=== PATIENT | female | born 1990 | race Caucasian/White ===

== ENCOUNTER → 2017-07-16 | Outpatient (CLI) | payer BC ==
[2017-07-16 17:29] LABS: BASO % 0.4 %; BASO ABS # 0.04 K/uL (0-0.2); EOS % 2.8 %; HEMATOCRIT 37.4 % (37-47); HEMOGLOBIN 12.6 g/dL (12.0-16.0); IG# 0.01 K/uL (0.00-0.02); LYMPH % 22.3 %; LYMPH ABS # 2.41 K/uL (1.2-3.4); MEAN CELL VOLUME 88.4 fL (80-100); MEAN CORPUSCULAR HEMOGLOBIN 29.8 pg (25-34); MEAN CORPUSCULAR HGB CONC 33.7 g/dl (32-36); MEAN PLATELET VOLUME 10.4 fL (7.4-10.4); MONO % 8.2 %; MONO ABS # 0.89 K/uL (0.11-0.59); NEUT % 66.2 %; NEUT ABS # 7.16 K/uL (1.4-6.5); PLATELET COUNT 224 K/uL (130-400); RED CELL DISTRIBUTION WIDTH CV 13.4 % (11.5-14.5); RED CELL DISTRIBUTION WIDTH SD 43.1 fL (36.4-46.3); WHITE BLOOD COUNT 10.81 K/uL (4.8-10.8)
== END | disposition home or self-care (01) ==
LOC: C.LAB1850 17:06
PROVIDERS: ATTEND Obstetrics & Gynecology
DX: Z34.81 Encounter for supervision of other normal pregnancy, first trimester (principal)

== ENCOUNTER → 2017-07-16 | Outpatient (CLI) | payer BC | END | disposition home or self-care (01) | LOC: C.LABSPEC 17:42 | PROVIDERS: ATTEND Obstetrics & Gynecology | DX: Z34.81 Encounter for supervision of other normal pregnancy, first trimester (principal) ==

== ENCOUNTER → 2017-08-30 | Outpatient (CLI) | payer BC | END | disposition home or self-care (01) | LOC: C.LAB1850 11:23 | PROVIDERS: ATTEND Obstetrics & Gynecology | DX: Z34.82 Encounter for supervision of other normal pregnancy, second trimester (principal) ==

== ENCOUNTER → 2018-01-20 | Outpatient (CLI) | payer BC | END | disposition home or self-care (01) | LOC: C.LABSPEC 17:42 | PROVIDERS: ATTEND Obstetrics & Gynecology | DX: Z34.83 Encounter for supervision of other normal pregnancy, third trimester (principal) ==

== ENCOUNTER 2018-09-01 08:13 | Inpatient (IN) ==
--- NOTE | 2018-08-29 14:04 | Anesthesiology Consultation ---
Date of Service August 29, 2018 Assessment & Plan (1) Encounter for pre-operative examination: Chart Review Chart Review: Acceptable Risk for Surgery and Patient NOT seen in Pre Admission Testing Consults Requested none History Surgery Operation Date: 09/15/18 08:15 Proposed Procedures p Laparoscopic Cholecystectomy with Cholangiogram - Dangelo Burkett MD Height/Weight Height: 5 ft 6.5 in Weight: 72.575 kg Allergies Allergy/AdvReac Type Severity Reaction Status Date / Time coconut Allergy Hives Verified 08/29/18 09:31 Medications Home Medications Medication Instructions Recorded Confirmed Last Taken albuterol sulfate 1 puff INHALATION Q6H PRN 05/18/18 08/29/18 Unknown multivitamin 1 tab PO QAM 08/29/18 08/29/18 Unknown Past Medical History Medical History Migraine Past Family History Family History Father Diabetes Sister Endometritis Mother Endometritis Hypertension Past Surgical History Surgical History Cyst of right Bartholin's gland removed History of adenoidectomy History of bilateral tubal [place] [facility] [place] of tonsillectomy History of wisdom tooth extraction Social History Smoking Status: Former smoker tobacco type: cigarettes Smoking cigarettes per day: QUIT SEVERAL YEARS AGO Do You Dip or Chew Tobacco: No Hx Alcohol Use: No Alcohol Intake Frequency Comment: 0 Hx Substance Use: No substance use type: does not use
--- NOTE | 2018-09-01 07:53 | Anesthesiology Consultation ---
Date of Service September 01, 2018 Assessment & Plan Chart Review Chart Review: Acceptable Risk for Surgery and Patient NOT seen in Pre Admission Testing Consults Requested none Proposed Anesthesia Anesthesia Type: General History Surgery Operation Date: 09/01/18 09:55 Proposed Procedures p Laparoscopic Cholecystectomy with Cholangiogram - Dangelo Burkett MD Operation Date: 09/15/18 08:15 Proposed Procedures p Laparoscopic Cholecystectomy with Cholangiogram - Dangelo Burkett MD Height/Weight Height: 1.69 m Weight: 72.575 kg Allergies Allergy/AdvReac Type Severity Reaction Status Date / Time coconut Allergy Hives Verified 08/29/18 09:31 Medications Home Medications Medication Instructions Recorded Confirmed Last Taken albuterol sulfate 1 puff INHALATION Q6H PRN 05/18/18 08/29/18 Unknown multivitamin 1 tab PO QAM 08/29/18 08/29/18 Unknown Past Medical History Medical History Migraine Past Family History Family History Father Diabetes Sister Endometritis Mother Endometritis Hypertension Past Surgical History Surgical History Cyst of right Bartholin's gland removed History of adenoidectomy History of bilateral tubal ligation MAY 2018, [facility] [place] Mac 3 gr I view #7 ETT History of tonsillectomy History of wisdom tooth extraction Past Anesthesia History No Hx of Anesthesia Complications and No Family Hx of Anesthesia Complications History of PONV No Motion Sickness Screening History of Motion Sickness: No Social History Smoking Status: Former smoker tobacco type: cigarettes Smoking cigarettes per day: QUIT SEVERAL YEARS AGO Do You Dip or Chew Tobacco: No Hx Alcohol Use: No Alcohol Intake Frequency Comment: 0 Hx Substance Use: No substance use type: does not use Exercise / Class Metabolic Activity II 4-5 Yardwork/Stairs/Walk up hill Testing Laboratory Results Laboratory Tests 08/16/18 16:11 Hgb 12.2 Hct 38.3
[~2018-09-01 08:13] MED LIST: LR 15ML/HR IV SCH
[2018-09-01] MEDS ORDERED: NEOSTIGMINE METHYLSULFATE 5 MG/5 ML SYR ONE (08:42)
[2018-09-01] MEDS ORDERED: ONDANSETRON INJ 2 MG/ML 2 ML VIAL ONE (08:42)
[2018-09-01] MEDS ORDERED: PROPOFOL IV EMULSION 10 MG/ML 20 ML VIAL IV ONE ×2 (08:42→10:06)
[2018-09-01] MEDS ORDERED: ROCURONIUM BROMIDE 10 MG/ML 5 ML VIAL ONE (08:42)
[2018-09-01] MEDS ORDERED: DEXAMETHASONE SOD INJ 4 MG/ML VIAL ONE (08:42)
[2018-09-01] MEDS ORDERED: GLYCOPYRROLATE 0.2 MG/ML VIAL ONE (08:42)
[2018-09-01] MEDS ORDERED: MIDAZOLAM HCL 1 MG/ML 2ML VIAL ONE (08:42)
[2018-09-01] MEDS ORDERED: fentaNYL citrate 100 MCG/2 ML VIAL ONE ×2 (08:42→10:13)
[2018-09-01] MEDS ORDERED: LIDOCAINE HCL 2% 2 ML VIAL/AMP(20MG/ML) INFIL ONE (08:42)
[2018-09-01] MEDS ORDERED: ePHEDrine sulfate 50 MG/ML AMP IV PRN (09:03)
[2018-09-01] MEDS ORDERED: MEPERIDINE HCL 25 MG/ML CARP IV PRN (09:03)
[2018-09-01] MEDS ORDERED: LABETALOL HCL IV 5 MG/ML 20ML IV PRN (09:03)
[2018-09-01] MEDS ORDERED: PHENYLEPHRINE 100MCG/ML 5ML SYR IV PRN (09:03)
[2018-09-01] MEDS ORDERED: ONDANSETRON INJ 2 MG/ML 2 ML VIAL IV PRN ×2 (09:03→12:24)
[2018-09-01] MEDS ORDERED: HYDROmorphone INJ 1 MG/ML SYRINGE IV PRN (09:03)
[2018-09-01] MEDS ORDERED: ATROPINE SULFATE 0.1 MG/ML 10ML SYR IV PRN (09:03)
--- NOTE | 2018-09-01 09:13 | History & Physical Bridge Note ---
Date of Service September 01, 2018 History & Physical Bridge Note I have examined the patient, reviewed the History & Physical and in the interval since the performance of the History & Physical I have noted the following changes of clinical significance: no changes noted all questions answered had acute attack 24 hrs + ago called office yesterday to move up surgery no nausea, no chiolls abd minimal ruq guarding SO at bedside
--- NOTE | 2018-09-01 09:16 | Anesthesiology Consultation ---
Date of Service September 01, 2018 Assessment & Plan Chart Review Chart Review: Acceptable Risk for Surgery and Patient NOT seen in Pre Admission Testing Consults Requested none ASA ASA2 Proposed Anesthesia Anesthesia Type: General Risk / Benefits Reviewed With: PT / POA / Parent / Guardian, Accepts Plan and Informed Consent Obtained NPO Date Last Intake of Fluids: 08/31/18 Time Last Intake of Fluids: 22:00 Date Last Intake of Solids: 08/31/18 Time Last Intake of Solids: 22:00 History Surgery Operation Date: 09/01/18 09:55 Proposed Procedures p Laparoscopic Cholecystectomy with Cholangiogram Devante Burkett MD Operation Date: 09/15/18 08:15 Proposed Procedures p Laparoscopic Cholecystectomy with Cholangiogram Devante Burkett MD Height/Weight Height: 5 ft 7 in Weight: 73.4 kg Allergies Allergy/AdvReac Type Severity Reaction Status Date / Time coconut Allergy Mild Hives Verified 09/01/18 08:38 Medications Home Medications Medication Instructions Recorded Confirmed Last Taken albuterol sulfate 1 puff INHALATION Q6H PRN 05/18/18 09/01/18 Unknown multivitamin 1 tab PO QAM 08/29/18 09/01/18 08/31/18 07:00 Active Medications Generic Name Dose Route Start Last Admin Trade Name Freq PRN Reason Stop Dose Admin Lactated Ringer's 1,000 mls @ 15 mls/hr 09/01/18 06:00 09/01/18 08:42 Lr IV 09/02/18 05:59 15 mls/hr .Q24H THUY Administration Past Medical History Medical History Cholecystitis Migraine Past Family History Family History Father Diabetes Sister Endometritis Mother Endometritis Hypertension Past Surgical History Surgical History History of bilateral tubal ligation MAY 2018, [facility] [place] [place] 3 gr I view #7 ETT Cyst of right Bartholin's gland removed History of adenoidectomy History of tonsillectomy History of wisdom tooth extraction Past Anesthesia History No Hx of Anesthesia Complications and No Family Hx of Anesthesia Complications History of PONV No Motion Sickness Screening History of Motion Sickness: No Social History Smoking Status: Former smoker tobacco type: cigarettes Smoking cigarettes per day: QUIT SEVERAL YEARS AGO Do You Dip or Chew Tobacco: No Hx Alcohol Use: No Alcohol Intake Frequency Comment: 0 Hx Substance Use: No substance use type: does not use Exercise / Class Metabolic Activity II 4-5 Yardwork/Stairs/Walk up hill Review of Systems no chest pain or sob Physical Exam Vital Signs Last Vital Signs Temp 36.4 C L 09/01/18 08:40 Pulse 74 09/01/18 08:40 Resp 16 09/01/18 08:40 BP 107/70 09/01/18 08:40 Pulse Ox 100 09/01/18 08:40 ENMT Mouth: no TMJ abnormality Thyromental Distance: > or= 3.5 Finger Breadths Mallampati Class: II Neck normal visual inspection Respiratory normal respiratory effort Auscultation: lungs clear to auscultation bilaterally Cardiovascular Rate/Rhythm: regular rate and regular rhythm Musculoskeletal Spine: normal cervical ROM Neurologic moves all extremities Psychiatric Orientation: alert and oriented x 3
[2018-09-01] MEDS ORDERED: LIDOCAINE/EPINEPHRINE 1% 20 ML VIAL ONE (09:36)
[2018-09-01] MEDS ORDERED: CONRAY 60% 50 ML VIAL ONE (09:36)
[2018-09-01] MEDS ORDERED: GLUCAGON FOR INJ 1 MG VIAL ONE (10:20)
[2018-09-01] MEDS ORDERED: cefOXitin 1,000 MG/50 ML BAG IV STA (10:31)
[2018-09-01] MEDS ORDERED: SUGAMMADEX SODIUM 200 MG/2 ML VIAL IV ONE (10:41)
--- NOTE | 2018-09-01 10:43 | Post Operative Brief Note ---
Immediate Post Op Note v1 Date of Surgery September 01, 2018 Pre & Post Diagnosis Operation Date: 09/01/18 09:55 Pre-Op Diagnosis: Chronic Cholecystitis and Acute Cholecystitis Post-Op Diagnosis: Chronic Cholecystitis and Acute Cholecystitis Common Bile Duct Stone Operation Date: 09/15/18 08:15 <No data on this case meets the specified criteria> Procedure Operation Date: 09/01/18 09:55 Actual Procedures p Laparoscopic Cholecystectomy with Cholangiogram - Dangelo Burkett MD Operation Date: 09/15/18 08:15 <No data on this case meets the specified criteria> Surgeon Dangelo Burkett MD Peg Driver ghassan alvarado Estimated Blood Loss 5 Findings Consistent with Post-Op Diagnosis Drains Abdirahman Drain (19fr)
--- NOTE | 2018-09-01 11:04 | Operative Report ---
Post Operative Report Pre & Post Diagnosis Operation Date: 09/01/18 09:55 Pre-Op Diagnosis: Chronic Cholecystitis and Acute Cholecystitis Post-Op Diagnosis: Chronic Cholecystitis and Acute Cholecystitis Common Bile Duct Stone Operation Date: 09/15/18 08:15 <No data on this case meets the specified criteria> Procedure Operation Date: 09/01/18 09:55 Actual Procedures p Laparoscopic Cholecystectomy with Cholangiogram - Daneglo Burkett MD Operation Date: 09/15/18 08:15 <No data on this case meets the specified criteria> Patient was brought into the operating theater under general anesthesia supine position abdomen prepped Betadine solution properly draped systemic antibiotics given timeout was had small incision was made supraumbilically sufficient enough for a Veress needle followed by CO2 followed by 5 mm trocar point of entry expected no intra-identified direct visualization 5 mm epigastric 2 5 mm subc ostal ports were placed with preemptive local analgesic gallbladder was identified the wall was edematous therefore we aspirated the gallbladder which was thick bilious sufficient enough that we able to gravity and elevated dissected out towards the triangle KAMI which that area was so some edema we identified a very small cystic duct which we clamped proximally small opening cystic duct was made #4 urethral catheter transverse and abdominal wall and a 14 Angiocath was positioned in the cystic duct serial x-rays were taken there was no contrast going into the duodenum the common bile duct and biliary proximal area was dilated one view I could see what appeared to be filling defects in the distal common bile duct I elected to give the patient 1 mg of glucagon flushed the area again and reimaged still we were unable to get any contrast into the duodenum but I suspect that the patient will need an ERCP postoperatively. At this point the Cholangiocath was removed cystic duct was doubly secured clips and divided cystic artery identified clipped and divided gallbladder was removed in the antegrade fashion leaving as much as possible the posterior peritoneum gallbladder placed in an Endopouch and taken out intact through the epigastric port on opening the gallbladder the patient had a typical cholesterol stones. Due to the suspicion that the patient would need an ERCP at this point I elected to place a Abdirahman drain subhepatically 19 bringing out through the epigastric port taken lots of the lateral port prior to doing that I placed the camera in the right upper quadrant lateral port to visualize the umbilical opening there were no adhesions of the area individual trocar was taken out under direct visualization and last the umbilical trocar wounds were cold closed with 4-0 Monocryl in a Abdirahman drain was attached to the skin edge with 2-0 silk interesting the patient had a workup that approximately a month ago at [place] silent liver enzymes were all normal she had no clinical symptoms of common bile duct stone no enzymes were obtained since she came in moved up her surgery we will obtain liver function tests in the recovery room along with her lipase I discussed the case with GI Dr. Martin Santiago for possibly doing an ERCP he recommended maybe wait till tomorrow since the patient was under general anesthesia may not be able to give consent at this time. The case was discussed with her also. Addendum blood loss 5 cc Celsa ROBLES present throughout the procedure and helped with retraction camera work and wound closure thank you Surgeon Dangelo Burkett MD Associate Chemist ghassan robles Estimated Blood Loss 5 Findings Consistent with Post-Op Diagnosis Specimens gallbladder and stones Description of Procedure merda I attest to the content of the Intraoperative Record and any orders documented therein. Any exceptions are noted below.
[2018-09-01] MEDS: fentaNYL citrate 100 MCG/2 ML VIAL IV PRN ×4 (11:18→11:34)
--- NOTE | 2018-09-01 11:39 | Fluoroscopy Report ---
INTRAOPERATIVE CHOLANGIOGRAM HISTORY: Post cholecystectomy. FLUOROSCOPY TIME: 5 seconds. 4 fluoroscopic spot images FINDINGS: Fluoroscopy was provided for an intraoperative cholangiogram status post cholecystectomy. C ontrast was injected through the cystic duct remnant. The common bile duct is normal in course and ca liber. There is a small round filling defect within the distal common bile duct. This is not clearly identified on the final image. However, does not extend into the small bowel. There is no intrahe patic bile duct dilatation. IMPRESSION: Fluoroscopy provided for an intraoperative cholangiogram status post cholecystectomy. The re is a small round filling defect within the distal common bile duct. This is not clearly identified on the final image. However, contrast does not extend into the small bowel. Therefore, this could re present a gas bubble or possible stone at the ampulla. Electronically signed by: Ankur Fairbanks M.D. 09/01/2018 11:38 AM
--- NOTE | 2018-09-01 11:49 | Anesthesiology Progress Note ---
Date of Service September 01, 2018 Anesthesia Post Procedure Vital Signs Vital Signs: Temp Pulse Pulse Resp BP Pulse Ox 09/01/18 11:40 61 21 135/88 100 09/01/18 11:30 56 L 19 140/94 99 09/01/18 11:20 51 L 21 131/91 100 09/01/18 11:10 51 L 18 133/85 100 09/01/18 11:00 36 C L 73 20 134/96 100 09/01/18 08:40 36.4 C L 74 16 107/70 100 Pain Intensity Abdomen: Pain Intensity: 3 Notes Mental Status: alert / awake / arousable Patient Amnestic to Procedure: Yes Nausea / Vomiting: adequately controlled Pain: adequately controlled Airway Patency, RR, SpO2: stable & adequate BP & HR: stable & adequate Hydration State: stable & adequate Anesthetic Complications: no major complications apparent and Pt Satisfied with anesthetic care
[2018-09-01 12:23] LABS: Albumin Level 3.6 gm/dl (3.4-5.0); Bilirubin Direct 2.8 mg/dl (0-0.2); Bilirubin,Total 3.4 mg/dl (0.2-1); Total Protein 7.2 gm/dl (6.4-8.2)
[2018-09-01] MEDS ORDERED: ALBUTEROL HFA 8 GM INHALER INH PRN (12:24)
[2018-09-01] MEDS: MoRPHine SULFATE 4 MG/ML 1 ML CARP\\VIAL IV PRN ×3 (12:38→19:45)
[2018-09-01] MEDS: LACTATED RINGER'S 1,000 ML IV SCH (12:38)
--- NOTE | 2018-09-01 12:39 | Gastrointestinal Consultation ---
Date of Consultation September 01, 2018 Assessment & Plan (1) Retained gallstones following laparoscopic cholecystectomy: Pt is a 27 y/o female who just underwent lap cholecystectomy today for worsening RUQ abd pain, found to have filling defect on her intra op cholangiogram suspicious for CBD stone. - Check CBC, CMP, PT/INR, Lipase - NPO after midnight for ERCP in OR tomorrow by Dr. Santiago. She is currently in PACU recovering from her lap miguelina. I was able to get in touch with her Marshall and discussed w him indication of ERCP, technical details of the procedure and risks vs benefits. Will follow up with pt once she's more awake. Supervising Physician Co-Signing Physician Notes I saw and evaluated the patient. She presented with a history of abdominal discomfort and underwent an intraoperative cholangiogram during her cholecystectomy today. It appears that she has a number of filling defects suggestive of gallstones. Labs certainly after her cholecystectomy to show elevation of the liver enzymes in addition to her bilirubin and lipase. Physical examination No obvious distress Mild scleral icterus noted Impression: Patient with what appears to be numerous gallstones within her common bile duct and perhaps pancreatitis given her labs. We would suggest aggressive IV hydration overnight and ERCP gallstone extraction. Recommendation IV hydration today please ERCP tomorrow History of Present Illness Reason for Consultation: ERCP request for choledocholithiasis Requesting Physician: Dr. Dangelo Burkett Attending Physician: Dr. Cassia Santiago History of Present Illness Pt is a 27 y/o female who had been c/o worsening RUQ abd pain symptoms, had her lap cholecystectomy moved up to today by Dr. Burkett. It was noted on her intraop cholangiogram that she has a filling defect in her bile duct suspicious for CBD stone. GI contacted for ERCP request to remove CBD stone. She is currently in PACU after her lap miguelina, c/o abd pain but remained drowsy. Doesn't appear to be in distress. HRR, CTA lungs. She is going to be transferred to surgical floor. Allergies Allergy/AdvReac Type Severity Reaction Status Date / Time coconut Allergy Mild Hives Verified 09/01/18 08:38 Home Medications Home Medications Medication Instructions Recorded Confirmed Type albuterol sulfate 1 puff INHALATION Q6H PRN 05/18/18 09/01/18 History multivitamin 1 tab PO QAM 08/29/18 09/01/18 History oxycodone-acetaminophen [Percocet] 1 - 2 tab PO Q4H PRN #15 tab 09/01/18 Rx Patient History Medical History Cholecystitis Migraine Surgical History History of bilateral tubal ligation MAY 2018, [place] Mac 3 gr I view #7 ETT Cyst of right Bartholin's gland removed History of adenoidectomy History of tonsillectomy History of wisdom tooth extraction Family History Father Diabetes Sister Endometritis Mother Endometritis Hypertension Social History Preferred Language: Honduran Communication Ability: Effective Bobbin Winder Required: No Beliefs That Will Affect Care: None marital status: Current Living Situation: Spouse Other Information That Helps Us Care for You: No Feels Safe at Home: Yes Safety Concerns: Feels Safe At This Time Smoking Status: Former smoker Hx Alcohol Use: No Hx Substance Use: No Review of Systems See HPI above. Physical Exam Vital Signs (Past 24 Hours): Last Vital Signs Temp 36.8 C 09/01/18 12:00 Pulse 53 L 09/01/18 12:00 Resp 12 09/01/18 12:00 BP 136/93 09/01/18 12:00 Pulse Ox 100 09/01/18 12:00 Constitutional: WD/WN, vitals as above well groomed, cooperative and comfortable Eyes: PERRL, conjunctivae normal, anicteric sclerae ENMT: external ear and nose normal, oropharynx normal Respiratory: normal respiratory effort, lungs clear to auscultation Cardiovascular: RRR, no murmur, no edema Gastrointestinal (Abdomen): Percussion/Palpation: + abdomen tender and abdomen soft Skin: no rashes, warm and dry no jaundice Psychiatric: drowsy (post op) Results & Data Laboratory Results Laboratory Results - last 72 hr 09/01/18 11:47 Total Bilirubin 3.4 H Direct Bilirubin 2.8 H AST 164 H ALT 245 H Alkaline Phosphatase 192 H Total Protein 7.2 Albumin 3.6 Lipase 2269 H
[2018-09-01 13:30] LABS: Basophils # (auto) 0.01 K/uL (0-0.2); Basophils % (auto) 0.1 %; Eosinophils # (auto) 0.03 K/uL (0-0.5); Eosinophils % (auto) 0.3 %; Hematocrit (blood only) 39.1 % (37-47); Hemoglobin 12.6 g/dL (12.0-16.0); Immature Granulocytes # (auto) 0.02 K/uL (0.00-0.02); Immature Granulocytes % (auto) 0.2 %; Lymphocytes # (auto) 0.84 K/uL (1.2-3.4); Mean Corpuscular Hgb Conc 32.2 g/dL (32-36); Mean Corpuscular Volume 83.4 fL (80-100); Mean Platelet Volume 11.8 fL (7.4-10.4); Monocytes % (auto) 2.1 %; Neutrophils # (auto) 8.28 K/uL (1.4-6.5); Neutrophils % (auto) 88.3 %; Platelet Count 204 K/uL (130-400); RDW Coefficient of Variation 15.4 % (11.5-14.5); RDW Standard Deviation 47.1 fL (36.4-46.3); Red Blood Count 4.69 M/uL (4.2-5.4); White Blood Count 9.38 K/uL (4.8-10.8)
[2018-09-01 13:41] LABS: Prothrombin Time 10.5 Seconds (9.0-12.0)
[2018-09-01 13:48] LABS: Albumin Level 3.5 gm/dl (3.4-5.0); BUN Creatinine Ratio 7.3 (10-20); Calcium 8.9 mg/dl (8.5-10.1); Creatinine Clr Calc Pharmacy 82.4 ml/min; Est GFR (African American) 90.3; Potassium 3.7 mmol/L (3.5-5.1)
[2018-09-01 13:51] LABS: Bilirubin,Total 3.2 mg/dl (0.2-1); Globulin 3.4 gm/dl (2.5-4.0); Total Protein 6.9 gm/dl (6.4-8.2)
[2018-09-01] MEDS ORDERED: INFLUENZA ADMINISTRATION CHARGE ONE (14:45)
[2018-09-01] MEDS ORDERED: INFLUENZA VIRUS QUAD VACCINE 0.5 ML SYR IM ONE (14:45)
[2018-09-02] MEDS: LACTATED RINGER'S 1,000 ML IV SCH ×2 (00:12→09:37)
[2018-09-02] MEDS: MoRPHine SULFATE 4 MG/ML 1 ML CARP\\VIAL IV PRN ×3 (00:15→10:42)
[2018-09-02] MEDS ORDERED: INDOMETHACIN 50 MG SUPP PR ONE ×2 (08:00→12:06)
--- NOTE | 2018-09-02 08:16 | Surgery Progress Note ---
Date of Service September 02, 2018 Assessment & Plan (1) Retained gallstones following laparoscopic cholecystectomy: for ERCP today Subjective some pain at epigastric incision, RUQ pain similar to preop Physical Exam Vital Signs (Past 24 Hours): Last Vital Signs Temp 36.9 C 09/02/18 03:52 Pulse 65 09/02/18 03:52 Resp 14 09/02/18 03:52 BP 110/69 09/02/18 03:52 Pulse Ox 99 09/02/18 03:52 Gastrointestinal (Abdomen): Inspection/Auscultation: + abdominal surgical drain present (70 cc serosang) Percussion/Palpation: abdomen soft
--- NOTE | 2018-09-02 11:03 | Gastroenterology Progress Note ---
Date of Service September 02, 2018 Assessment & Plan (1) Retained gallstones following laparoscopic cholecystectomy: Pt is a 27 y/o female who just underwent lap cholecystectomy yesterday (09/01) for worsening RUQ abd pain, with intra op cholangiogram suspicious for CBD stone. Plan for ERCP in the OR by Dr. Santiago today. The procedure was explained in detail including possible complications: bleeding, pancreatitis. Keep NPO. Further recommendations to follow ERCP. Supervising Physician Co-Signing Physician Notes I saw and evaluated the patient. We are planning to proceed with ERCP today for treatment of choledocholithiasis. The patient and I have discussed the risks of the procedure to include bleeding, infection, perforation and pain. Given her elevated lipase from yesterday I would suggest a repeat today. Subjective Constitutional: no fever, no sweats, no body aches and no weakness Eyes: no dry eyes, no eye pain and no itchy eyes Ear, Nose, Mouth, Throat: no ear pain and no pain with swallowing Respiratory: no cough, no dyspnea and no hemoptysis Cardiovascular: no chest pain, no palpitations and no edema Gastrointestinal: + abdominal pain (surgical); no early satiety, no nausea, no vomiting and no hematemesis Genitourinary (Female): no dysuria Musculoskeletal: no back pain Integumentary: no rash and no lesions Neurologic: no gait abnormality, no falls and no localized weakness Psychiatric: no behavioral changes and no depression Endocrine: no fatigue, no polydipsia, no polyphagia and no polyuria Physical Exam Vital Signs (Past 24 Hours): Last Vital Signs Temp 36.8 C 09/02/18 07:25 Pulse 65 09/02/18 07:25 Resp 16 09/02/18 07:25 BP 100/66 09/02/18 07:25 Pulse Ox 98 09/02/18 07:25 Constitutional: WD/WN, vitals as above Eyes: PERRL, conjunctivae normal, anicteric sclerae ENMT: external ear and nose normal, oropharynx normal Neck: trachea midline, no thyromegaly Respiratory: normal respiratory effort; no respiratory distress, no retractions, does not use accessory muscles and no cough minimal crackles in the right base; no wheezing Cardiovascular: RRR, no murmur, no edema Gastrointestinal (Abdomen): tenderness in the surgical areas, dressings dry & intact, BS presents all 4 quadrants, minimal soft distention Musculoskeletal: no cyanosis or clubbing, extremities motor strength 5/5 Skin: no rashes, warm and dry no jaundice Neurologic: PERRL, EOMI, accommodation nl, no face palsy, no dysarthria Psychiatric: A+Ox3, euthymic affect Lymphatic: no cervical or axillary lymphadenopathy
[2018-09-02] MEDS ORDERED: PROPOFOL IV EMULSION 10 MG/ML 20 ML VIAL IV ONE (11:27)
[2018-09-02] MEDS ORDERED: LIDOCAINE HCL 2% 2 ML VIAL/AMP(20MG/ML) INFIL ONE (11:27)
[2018-09-02] MEDS ORDERED: MIDAZOLAM HCL 1 MG/ML 2ML VIAL ONE (11:27)
[2018-09-02] MEDS ORDERED: fentaNYL citrate 100 MCG/2 ML VIAL ONE (11:28)
--- NOTE | 2018-09-02 12:24 | Anesthesiology Consultation ---
Date of Service September 02, 2018 Assessment & Plan Chart Review Chart Review: Acceptable Risk for Surgery and Patient NOT seen in Pre Admission Testing Consults Requested none ASA ASA2 Proposed Anesthesia Anesthesia Type: General Risk / Benefits Reviewed With: PT / POA / Parent / Guardian, Accepts Plan and Informed Consent Obtained NPO Date Last Intake of Fluids: 09/01/18 Time Last Intake of Fluids: 23:59 Date Last Intake of Solids: 09/01/18 Time Last Intake of Solids: 23:59 History Surgery Operation Date: 09/01/18 09:55 Proposed Procedures p Laparoscopic Cholecystectomy with Cholangiogram - Dangelo Burkett MD Operation Date: 09/02/18 12:00 Proposed Procedures p Endoscopic Retrograde Cholangiopancreatogram - Cassia Santiago Operation Date: 09/15/18 08:15 Proposed Procedures p Laparoscopic Cholecystectomy with Cholangiogram - Dangelo Burkett MD Height/Weight Height: 5 ft 7 in Weight: 73.4 kg Allergies Allergy/AdvReac Type Severity Reaction Status Date / Time coconut Allergy Mild Hives Verified 09/01/18 08:38 Medications Home Medications Medication Instructions Recorded Confirmed Last Taken albuterol sulfate 1 puff INHALATION Q6H PRN 05/18/18 09/01/18 Unknown multivitamin 1 tab PO QAM 08/29/18 09/01/18 08/31/18 07:00 oxycodone-acetaminophen [Percocet] 1 - 2 tab PO Q4H PRN #15 tab 09/01/18 Unknown Active Medications Generic Name Dose Route Start Last Admin Trade Name Freq PRN Reason Stop Dose Admin Lactated Ringer's 1,000 mls @ 100 mls/hr 09/01/18 12:24 09/02/18 09:37 Lr IV 10/01/18 12:23 100 mls/hr .Q10H THUY Administration Morphine Sulfate 4 mg 09/01/18 12:24 09/02/18 10:42 Morphine Sulfate IV 09/15/18 12:23 4 mg Q1H PRN Administration MODERATE Pain (Scale 4,5,6) Past Medical History Medical History Cholecystitis Migraine Past Family History Family History Father Diabetes Sister Endometritis Mother Endometritis Hypertension Past Surgical History Surgical History History of bilateral tubal ligation MAY 2018, [place] [facility] 3 gr I view #7 ETT Cyst of right Bartholin's gland removed History of adenoidectomy History of tonsillectomy History of wisdom tooth extraction Past Anesthesia History No Hx of Anesthesia Complications and No Family Hx of Anesthesia Complications History of PONV No Motion Sickness Screening History of Motion Sickness: No Social History Smoking Status: Former smoker tobacco type: cigarettes Smoking cigarettes per day: QUIT SEVERAL YEARS AGO Do You Dip or Chew Tobacco: No Hx Alcohol Use: No Alcohol Intake Frequency Comment: 0 Hx Substance Use: No substance use type: does not use Exercise / Class Metabolic Activity II 4-5 Yardwork/Stairs/Walk up hill Physical Exam Vital Signs Last Vital Signs Temp 36.8 C 09/02/18 11:29 Pulse 72 09/02/18 11:29 Resp 18 09/02/18 11:29 BP 105/65 09/02/18 11:29 Pulse Ox 100 09/02/18 11:29 Constitutional not obese ENMT Mouth: no dentition abnormality Thyromental Distance: > or= 3.5 Finger Breadths Mallampati Class: II Neck normal visual inspection and trachea midline; neck extension not limited Respiratory normal respiratory effort Auscultation: lungs clear to auscultation bilaterally Cardiovascular Rate/Rhythm: regular rate and regular rhythm Heart Sounds: no murmur Musculoskeletal Spine: normal cervical ROM Neurologic moves all extremities Motor/Sensory: no sensory deficit Psychiatric Orientation: alert and oriented x 3 Testing Laboratory Results 09/01/18 13:16 09/01/18 13:16 PT 10.5 Seconds (9.0-12.0) 09/01/18 13:16 INR 1.0 (0.9-1.1) 09/01/18 13:16
--- NOTE | 2018-09-02 12:30 | History & Physical Bridge Note ---
Date of Service September 02, 2018 History & Physical Bridge Note I have examined the patient, reviewed the History & Physical and in the interval since the performance of the History & Physical I have noted the following changes of clinical significance: no changes noted
[2018-09-02] MEDS ORDERED: ONDANSETRON INJ 2 MG/ML 2 ML VIAL ONE ×2 (13:05→16:22)
[2018-09-02] MEDS ORDERED: LABETALOL HCL IV 5 MG/ML 20ML IV PRN (13:16)
[2018-09-02] MEDS ORDERED: PROMETHAZINE HCL 12.5 MG in SODIUM CHLORIDE 0.9% 50 ML IV PRN (13:16)
[2018-09-02] MEDS ORDERED: NALOXONE HCL 0.4 MG/1 ML VIAL/CARP IV PRN (13:16)
[2018-09-02] MEDS ORDERED: FLUMAZENIL 0.1 MG/1 ML 10 ML VIAL IV PRN (13:16)
[2018-09-02] MEDS ORDERED: ONDANSETRON INJ 2 MG/ML 2 ML VIAL IV PRN ×2 (13:16→16:19)
[2018-09-02] MEDS ORDERED: fentaNYL citrate 100 MCG/2 ML VIAL IV PRN (13:16)
[2018-09-02] MEDS ORDERED: ePHEDrine sulfate 50 MG/ML AMP IV PRN (13:16)
[2018-09-02] MEDS ORDERED: ATROPINE SULFATE 0.1 MG/ML 10ML SYR IV PRN (13:16)
--- NOTE | 2018-09-02 13:19 | Post Operative Brief Note ---
Immediate Post Op Note v1 Date of Surgery September 02, 2018 Pre & Post Diagnosis Operation Date: 09/01/18 09:55 Pre-Op Diagnosis: Chronic Cholecystitis and Acute Cholecystitis Post-Op Diagnosis: Chronic Cholecystitis and Acute Cholecystitis Common Bile Duct Stone Operation Date: 09/02/18 12:00 Pre-Op Diagnosis: Chronic Cholecystitis Post-Op Diagnosis: Chronic Cholecystitis Operation Date: 09/15/18 08:15 <No data on this case meets the specified criteria> Procedure Operation Date: 09/01/18 09:55 Actual Procedures p Laparoscopic Cholecystectomy with Cholangiogram - Dangelo Burkett MD Operation Date: 09/02/18 12:00 Actual Procedures p Endoscopic Retrograde Cholangiopancreatogram(Not Applicable) - Cassia Santiago Operation Date: 09/15/18 08:15 <No data on this case meets the specified criteria> Surgeon Cassia Santiago Stone Mill Operator [email or web address] Estimated Blood Loss 0 Findings See Below (CBD stones) Drains Abdirahman Drain (19fr)
[2018-09-02] MEDS ORDERED: GLYCOPYRROLATE 0.2 MG/ML VIAL ONE (13:29)
[2018-09-02] MEDS ORDERED: NEOSTIGMINE METHYLSULFATE 5 MG/5 ML SYR ONE (13:29)
--- NOTE | 2018-09-02 13:37 | GI REPORT ---
Patient Name: Nataliia Sheridan Procedure Date: 09/02/2018 12:45 PM Date of : 1990 Admit Type: Inpatient Age: 27 Gender: Female Attending MD: Cassia Santiago DO Procedure: ERCP Providers: Cassia Santiago DO Referring MD: Dangelo Burkett Indications: Abdominal pain of suspected biliary origin, Filling defect on intraoperative cholangiogram, For therapy of bile duct stone(s) Medicines: General Anesthesia Complications: No immediate complications. Estimated blood loss: Minimal. Estimated Blood Loss: Estimated blood loss was minimal. Procedure: Pre-Anesthesia Assessment: - Prior to the procedure, a History and Physical was performed, and patient medications, allergies and sensitivities were reviewed. The patient's tolerance of previous anesthesia was reviewed. - The risks and benefits of the procedure and the sedation options and risks were discussed with the patient. All questions were answered and informed consent was obtained. - Patient identification and proposed procedure were verified prior to the procedure by the physician, the nurse and the petroleum blending plant operator. The procedure was verified in the procedure room. - Pre-procedure physical examination revealed no contraindications to sedation. - ASA Grade Assessment: II - A patient with mild systemic disease. - After reviewing the risks and benefits, the patient was deemed in satisfactory condition to undergo the procedure. - The anesthesia plan was to use general anesthesia. - Immediately prior to administration of medications, the patient was re-assessed for adequacy to receive sedatives. - The heart rate, respiratory rate, oxygen saturations, blood pressure, adequacy of pulmonary ventilation, and response to care were monitored throughout the procedure. - The physical status of the patient was re-assessed after the procedure. After obtaining informed consent, the scope was passed under direct vision. Throughout the procedure, the patient's blood pressure, pulse, and oxygen saturations were monitored continuously. The scope was introduced through the mouth, and advanced to the duodenum and used to inject contrast into the bile duct. The ERCP was accomplished without difficulty. The patient tolerated the procedure well. Findings: A advanced manufacturing associate film of the abdomen was obtained. Surgical clips, consistent with a previous cholecystectomy, were seen in the area of the right upper quadrant of the abdomen. The esophagus was successfully intubated under direct vision without detailed examination of the pharynx, larynx, and associated structures, and upper GI tract. The upper GI tract was grossly normal. The major papilla was normal. The bile duct was deeply cannulated with the short-nosed traction sphincterotome and guidewire. Contrast was injected. I personally interpreted the bile duct images. Contrast extended to the entire biliary tree. A cholecystectomy had been performed. The biliary orifice was stenotic. This appeared benign. The lower third of the main bile duct contained filling defect(s) thought to be a stone. Biliary sphincterotomy was made with a monofilament Fusion OMNI sphincterotome using ERBE electrocautery. There was no post-sphincterotomy bleeding. The biliary tree was swept with a 15 mm balloon starting at the bifurcation. Many stones were removed. No stones remained. Indomethacin 100 mg was given via suppository to decrease the risk of post-ERCP pancreatitis (PEP). The endoscope was withdrawn from the patient. Impression: - The major papilla appeared normal. - Biliary papillary stenosis, benign. - A filling defect consistent with a stone was seen on the cholangiogram. - The patient has had a cholecystectomy. - Choledocholithiasis was found. Complete removal was accomplished by biliary sphincterotomy and balloon extraction. - A biliary sphincterotomy was performed. - The biliary tree was swept. - Indomethacin given to decrease risk of post-ERCP pancreatitis. Recommendation: - Avoid aspirin and nonsteroidal anti-inflammatory medicines for 5 days. - Clear liquid diet today. -Labs ordered, if lipase still elevated would consider overnight observation with IV hydration. Cassia Santiago D.O. Cassia Santiago, 09/02/2018 1:37:49 PM This report has been signed electronically. Note Initiated On: 09/02/2018 12:45 PM Number of Addenda: 0 I attest to the content of the Intraoperative Record and orders documented therein, exceptions below {[id number]}
--- NOTE | 2018-09-02 13:55 | Fluoroscopy Report ---
INTRAOPERATIVE RADIOGRAPHS CLINICAL HISTORY: ERCP. Fluoroscopy time: 54 seconds. FINDINGS: 7 spot fluoroscopic views of the right upper quadrant from an ERCP procedure are presented. Correlation is made with abdominal ultrasound dated 08/19/2018. A percutaneous catheter projects over the right upper quadrant. There is cannulation the common bile duct which appears distended. There i s intrahepatic biliary ductal dilatation. Round filling defects within the common bile duct may repre sent gallstones versus gas bubbles. A balloon sweep of the common duct is performed. There is free pa ssage of contrast into the duodenum. IMPRESSION: Intraoperative ERCP images as above. See operative report for detailed findings. Electronically signed by: Cas Lerner M.D. 09/02/2018 1:54 PM
--- NOTE | 2018-09-02 13:56 | Anesthesiology Progress Note ---
Date of Service September 02, 2018 Anesthesia Post Procedure Vital Signs Vital Signs: Temp Pulse Pulse Resp BP BP Pulse Ox 09/02/18 13:50 63 15 119/74 100 09/02/18 13:40 61 20 108/73 100 09/02/18 13:30 60 19 112/67 100 09/02/18 13:21 36.4 C L 78 17 121/73 100 09/02/18 12:39 36.8 C 69 18 111/69 100 09/02/18 11:29 36.8 C 72 18 105/65 100 09/02/18 07:25 36.8 C 65 16 100/66 98 09/02/18 03:52 36.9 C 65 14 110/69 99 09/02/18 00:00 36.9 C 68 14 111/70 98 09/01/18 15:33 37 C 64 16 115/74 98 09/01/18 14:34 36.7 C 80 16 111/74 100 Pain Intensity Abdomen: Pain Intensity: 2 Notes Mental Status: alert / awake / arousable Patient Amnestic to Procedure: Yes Nausea / Vomiting: adequately controlled Pain: adequately controlled Airway Patency, RR, SpO2: stable & adequate BP & HR: stable & adequate Hydration State: stable & adequate Anesthetic Complications: no major complications apparent
[2018-09-02] MEDS ORDERED: MoRPHine SULFATE 4 MG/ML 1 ML CARP\\VIAL IV PRN (16:17)
[2018-09-02] MEDS ORDERED: OXYCODONE/ACETAMINOPHEN 5mg/325mg TAB PO PRN (16:19)
[2018-09-02 16:48] LABS: BUN Creatinine Ratio 7.4 (10-20); Calcium 8.6 mg/dl (8.5-10.1); Creatinine Clr Calc Pharmacy 107.6 ml/min; Est GFR (African American) 124.8; Est GFR (Non-African American) 107.7; Potassium 3.4 mmol/L (3.5-5.1)
[2018-09-02 16:52] LABS: Albumin Globulin Ratio 0.9 (0.9-2); Bilirubin,Total 1.1 mg/dl (0.2-1); Globulin 3.2 gm/dl (2.5-4.0); Total Protein 6.2 gm/dl (6.4-8.2)
[2018-09-03 08:31] LABS: Basophils # (auto) 0.03 K/uL (0-0.2); Basophils % (auto) 0.5 %; Eosinophils % (auto) 3.4 %; Hematocrit (blood only) 34.4 % (37-47); Hemoglobin 10.7 g/dL (12.0-16.0); Immature Granulocytes # (auto) 0.02 K/uL (0.00-0.02); Immature Granulocytes % (auto) 0.3 %; Lymphocytes # (auto) 1.24 K/uL (1.2-3.4); Lymphocytes % (auto) 20.8 %; Mean Corpuscular Hgb Conc 31.1 g/dL (32-36); Mean Corpuscular Volume 83.5 fL (80-100); Mean Platelet Volume 11.2 fL (7.4-10.4); Monocytes # (auto) 0.63 K/uL (0.11-0.59); Monocytes % (auto) 10.6 %; Neutrophils # (auto) 3.83 K/uL (1.4-6.5); Neutrophils % (auto) 64.4 %; Platelet Count 175 K/uL (130-400); RDW Coefficient of Variation 15.4 % (11.5-14.5); RDW Standard Deviation 47.3 fL (36.4-46.3); Red Blood Count 4.12 M/uL (4.2-5.4); White Blood Count 5.95 K/uL (4.8-10.8)
[2018-09-03 08:50] LABS: Albumin Level 3.1 gm/dl (3.4-5.0); BUN Creatinine Ratio 10.5 (10-20); Calcium 9.4 mg/dl (8.5-10.1); Creatinine Clr Calc Pharmacy 120.5 ml/min; Est GFR (African American) 137.7; Est GFR (Non-African American) 118.8; Potassium 3.9 mmol/L (3.5-5.1)
[2018-09-03 08:53] LABS: Bilirubin,Total 0.9 mg/dl (0.2-1); Globulin 3.1 gm/dl (2.5-4.0); Total Protein 6.2 gm/dl (6.4-8.2)
[2018-09-03] MEDS ORDERED: MULTIVITAMIN TAB PO SCH (09:00)
--- NOTE | 2018-09-03 09:08 | Gastroenterology Progress Note ---
Date of Service September 03, 2018 Assessment & Plan (1) Retained gallstones following laparoscopic cholecystectomy: Patient status post ERCP for retained gallstones after cholecystectomy. She appears to be doing well from this regard. From our standpoint I would suggest advancing her diet as tolerated today and perhaps even early discharge. The patient will follow with my office as needed. Please call with any questions or concerns per Subjective The patient underwent ERCP yesterday for gallstone extraction. This morning she notes that her pain is improved. She does have some discomfort around her surgical incisions in addition to the ROLF drain. Physical Exam Vital Signs (Past 24 Hours): Last Vital Signs Temp 36.9 C 09/03/18 07:27 Pulse 77 09/03/18 07:27 Resp 18 09/03/18 07:27 BP 106/67 09/03/18 07:27 Pulse Ox 98 09/03/18 07:27 Constitutional: WD/WN, vitals as above Eyes: PERRL, conjunctivae normal, anicteric sclerae Respiratory: normal respiratory effort, lungs clear to auscultation Cardiovascular: RRR, no murmur, no edema Gastrointestinal (Abdomen): Mild tenderness noted around the site of the incisions and ROLF drain. ROLF drain seems to have serous fluid. Results & Data Laboratory Results Laboratory Results - last 24 hr 09/02/18 09/03/18 09/03/18 16:09 08:18 08:18 WBC 5.95 RBC 4.12 L Hgb 10.7 L Hct 34.4 L MCV 83.5 MCH 26.0 MCHC 31.1 L RDW Std Deviation 47.3 H RDW Coeff of Mary 15.4 H Plt Count 175 MPV 11.2 H Immature Gran % (Auto) 0.3 Neut % (Auto) 64.4 Lymph % (Auto) 20.8 Daniels % (Auto) 10.6 Eos % (Auto) 3.4 Baso % (Auto) 0.5 Immature Gran # (Auto) 0.02 Neut # (Auto) 3.83 Lymph # (Auto) 1.24 Daniels # (Auto) 0.63 H Eos # (Auto) 0.20 Baso # (Auto) 0.03 Sodium 141 140 Potassium 3.4 L 3.9 Chloride 109 H 108 H Carbon Dioxide 26 25 Anion Gap 6.0 6.0 BUN 6 L 7 Creatinine 0.75 0.67 Est Cr Clr Drug Dosing 107.6 120.5 Est GFR ( Amer) 124.8 137.7 Est GFR (Non-Af Amer) 107.7 118.8 BUN/Creatinine Ratio 7.4 L 10.5 Glucose 102 H 77 Calcium 8.6 9.4 Total Bilirubin 1.1 H D 0.9 AST 83 H 55 H ALT 187 H 160 H Alkaline Phosphatase 173 H 162 H Total Protein 6.2 L 6.2 L Albumin 3.0 L 3.1 L Globulin 3.2 3.1 Albumin/Globulin Ratio 0.9 1.0 Lipase 236
--- NOTE | 2018-09-03 10:00 | Anesthesiology Progress Note ---
Date of Service September 03, 2018 Anesthesia Post Procedure Vital Signs Vital Signs: Temp Pulse Pulse Pulse Resp BP Pulse Ox 09/03/18 07:27 36.9 C 77 18 106/67 98 09/03/18 03:07 37.1 C 88 14 100/65 97 09/02/18 23:38 37.0 C 70 14 97/60 L 97 09/02/18 19:11 36.6 C 59 L 18 115/76 100 09/02/18 17:23 36.7 C 69 19 117/78 98 09/02/18 16:23 36.8 C 68 18 105/69 98 09/02/18 15:20 36.9 C 68 18 103/70 98 09/02/18 14:50 36.6 C 67 15 114/73 98 09/02/18 14:20 37.1 C 68 16 108/72 99 09/02/18 14:00 37.2 C 61 23 109/70 98 09/02/18 13:50 63 15 119/74 100 09/02/18 13:40 61 20 108/73 100 09/02/18 13:30 60 19 112/67 100 09/02/18 13:21 36.4 C L 78 17 121/73 100 09/02/18 12:39 36.8 C 69 18 111/69 100 09/02/18 11:29 36.8 C 72 18 105/65 100 Pain Intensity Abdomen: Pain Intensity: 3 Notes Mental Status: alert / awake / arousable and participated in evaluation Patient Amnestic to Procedure: Yes Nausea / Vomiting: adequately controlled Pain: adequately controlled Airway Patency, RR, SpO2: stable & adequate BP & HR: stable & adequate Hydration State: stable & adequate Anesthetic Complications: no major complications apparent and Pt Satisfied with anesthetic care
--- NOTE | 2018-09-03 10:47 | Progress Note ---
Date of Service September 03, 2018 Assessment & Plan (1) Retained gallstones following laparoscopic cholecystectomy: Pt is s/p lap miguelina followed by ERCP with spincterotomy and removal of stones. She is doing well post-operatively. LFTs trending downward. - Regular diet - Monitor drain output - Analagesia PRN - Dispo: d/c home if tolerates diet - d/c with drain; patient instructed that she should measure drain output and record amount and bring record with her to her follow up appointment - f/u in approximately [address] Burkett (2) Acute and chronic cholecystitis: Subjective Pt is doing well today. Pain is well controlled. Mild nausea has improved. Ambulating without difficulty. Drain output 170. ml in the past 24 hrs Physical Exam Vital Signs (Past 24 Hours): Last Vital Signs Temp 36.9 C 09/03/18 07:27 Pulse 77 09/03/18 07:27 Resp 18 09/03/18 07:27 BP 106/67 09/03/18 07:27 Pulse Ox 98 09/03/18 07:27 Constitutional: no acute distress Respiratory: normal respiratory effort Cardiovascular: Rate/Rhythm: regular rate Gastrointestinal (Abdomen): soft, nondistended, mild appropriate tenderness; incisions clean/dry, no erythema or drainage; drain with serosang output Results & Data Laboratory Results 09/03/18 09/03/18 09/02/18 Range/Units 08:18 08:18 16:09 WBC 5.95 (4.8-10.8) K/uL RBC 4.12 L (4.2-5.4) M/uL Hgb 10.7 L (12.0-16.0) g/dL Hct 34.4 L (37-47) % MCV 83.5 (80-100) fL MCH 26.0 (25-34) pg MCHC 31.1 L (32-36) g/dL RDW Std Deviation 47.3 H (36.4-46.3) fL RDW Coeff of Mary 15.4 H (11.5-14.5) % Plt Count 175 (130-400) K/uL MPV 11.2 H (7.4-10.4) fL Immature Gran % (Auto) 0.3 % Neut % (Auto) 64.4 % Lymph % (Auto) 20.8 % Haskell % (Auto) 10.6 % Eos % (Auto) 3.4 % Baso % (Auto) 0.5 % Immature Gran # (Auto) 0.02 (0.00-0.02) K/uL Neut # (Auto) 3.83 (1.4-6.5) K/uL Lymph # (Auto) 1.24 (1.2-3.4) K/uL Haskell # (Auto) 0.63 H (0.11-0.59) K/uL Eos # (Auto) 0.20 (0-0.5) K/uL Baso # (Auto) 0.03 (0-0.2) K/uL Sodium 140 141 (136-145) mmol/L Potassium 3.9 3.4 L (3.5-5.1) mmol/L Chloride 108 H 109 H (98-107) mmol/L Carbon Dioxide 25 26 (21-32) mmol/L Anion Gap 6.0 6.0 (3-11) BUN 7 6 L (7-18) mg/dl Creatinine 0.67 0.75 (0.6-1.2) mg/dl Est Cr Clr Drug Dosing 120.5 107.6 ml/min Est GFR ( Amer) 137.7 124.8 Est GFR (Non-Af Amer) 118.8 107.7 BUN/Creatinine Ratio 10.5 7.4 L (10-20) Glucose 77 102 H (70-99) mg/dl Calcium 9.4 8.6 (8.5-10.1) mg/dl Total Bilirubin 0.9 1.1 H D (0.2-1) mg/dl AST 55 H 83 H (15-37) U/L ALT 160 H 187 H (12-78) U/L Alkaline Phosphatase 162 H 173 H (45-117) U/L Total Protein 6.2 L 6.2 L (6.4-8.2) gm/dl Albumin 3.1 L 3.0 L (3.4-5.0) gm/dl Globulin 3.1 3.2 (2.5-4.0) gm/dl Albumin/Globulin Ratio 1.0 0.9 (0.9-2) Lipase 236 (73-393) U/L
--- NOTE | 2018-09-05 17:33 | Discharge Summary ---
PRIMARY DISCHARGE DIAGNOSES: 1. Cholelithiasis with acute and chronic cholecystitis. 2. Choledocholithiasis. CONSULTATIONS: [facility] gastroenterology for ERCP. PROCEDURE PERFORMED: 1. Laparoscopic cholecystectomy with routine intraoperative cholangiogram on 09/01/[address] Burkett. 2. ERCP with sphincterotomy and stone extraction on 09/02/[address] Santiago. HOSPITAL COURSE: The patient is a 27-year-old female taken to the operating room for elective cholecystectomy. Procedure was well tolerated. Routine cholangiogram showed a filling defect common bile duct without any contrast in the duodenum. She was transferred to the surgical floor. GI was consulted routinely for postoperative ERCP. She was taken back to the operating room the next day for ERCP and stone extraction. The procedure was well tolerated. Returned again to the surgical floor. She had some nausea that evening. The next day, she was able to tolerate advancing diet. ROLF drainage was serosanguineous. Her lipase following the procedure was 236 and her bilirubin was improving 1.1. She was stable for discharge. DISCHARGE INSTRUCTIONS: Discharge home. Follow up with Dr. Burkett next week for removal of the drain. Follow up with Dr. Santiago in the next 2-3 weeks. DISCHARGE MEDICATIONS: Percocet 1-2 tablets every 4 hours as needed. Continue her home multivitamin and albuterol 1 puff every 6 hours as needed. [facility]
== END 2018-09-03 13:33 | disposition home or self-care (01) | DRG 419 ==
LOC: ASU 08:13 → 3W 10:59